=== PATIENT | male | born 1975 | race Caucasian/White ===

== ENCOUNTER 2017-08-18 00:45 | Emergency (ER) | payer OTHER, MEDICAID, SELFPAY ==
[2017-08-18 00:55] VITALS: BP 158/104; PULSE 95; RESP 20; TEMP 36.7; O2SAT 100
--- NOTE | 2017-08-18 01:00 | ED_ITS ---
HPI - Back Pain/Injury General Chief Complaint: Back Pain/Injury Stated Complaint: KIDNEY PAIN ON RIGHT SIDE Time Seen by Provider: 08/18/17 00:54 Source: patient and RN notes reviewed Mode of arrival: ambulatory Limitations: no limitations History of Present Illness HPI Narrative: Patient is a 41-year-old male who presents with right-sided hip and back pain. His girlfriend was recently diagnosed with a UTI he thinks he may have a kidney infection. His pain has been ongoing for about 6 months his pain that radiated down his leg. He denies any injury. He has no pain in his groin no painful frequent urination no blood in his urination. He has no penile discharge. The pain comes and goes. He has not had fever chills nausea or vomiting. MD Complaint: back pain Onset (ago): month(s) (6) Duration: intermittent Radiation: right leg Related Data Allergies Allergy/AdvReac Type Severity Reaction Status Date / Time No Known Drug Allergies Allergy Verified 08/18/17 00:55 Review of Systems Review of Systems All systems reviewed & are unremarkable except as noted in HPI and below Constitutional Denies chills, Denies fever(s), Denies lethargy and Denies weakness Cardiovascular Denies chest pain, Denies irregular heart rhythm, Denies lightheadedness, Denies palpitations, Denies dyspnea, Denies dyspnea on exertion and Denies orthopnea Respiratory Denies cough, Denies dyspnea, Denies dyspnea on exertion and Denies wheezing Gastrointestinal Gastrointestinal: Denies abdominal pain, Denies change in bowel habits, Denies diarrhea, Denies nausea and Denies vomiting Genitourinary Reports system reviewed and no additional complaints, except as docu, Denies hematuria and Reports flank pain Musculoskeletal Reports system reviewed and no additional complaints, except as docu, Reports as per HPI, Reports back pain (Right hip), Denies muscle weakness, Denies numbness, Reports radiating pain into limb (Right leg) and Denies tingling Integumentary/Breasts Denies pruritus, Denies erythema, Denies rash and Denies wounds Neurologic Denies numbness, Denies tingling and Denies weakness Endocrine Denies palpitations Allergic/Immunologic Denies wheezing Exam Const General: cooperative and healthy appearing Neck Neck: normal visual inspection, full ROM and no meningeal signs Resp Effort & Inspection: normal respiratory effort and able to speak in complete sentences Cardio Pulses: normal peripheral pulses GI Palpation: soft, No guarding and No tender Percussion: normal to percussion Auscultation: normal bowel sounds General: No CVA tenderness Back/Spine/Pelvis Thoracic/Lumbar Spine: thoracic and lumbar spine normal to inspection and straight leg raise negative bilaterally (Able to lift both legs up more than 45 ? without pain) Sacroiliac Joints: nontender Skin General: no rashes or lesions noted, No jaundice and No petechiae MDM - Back Pain/Injury Lab Data Attestation: I reviewed the patient's lab results. Urine POC is negative for leukocytes nitrites protein and blood Course Last Vital Signs Temp 98.0 F 08/18/17 00:55 Pulse 95 H 08/18/17 00:55 Resp 20 08/18/17 00:55 BP 158/104 H 08/18/17 00:55 Pulse Ox 100 08/18/17 00:55 Discharge Plan Departure Patient Disposition: Home, Self-Care Clinical Impression: Sciatic leg pain Discharge Date/Time: 08/18/17 01:31 Interventions: ED Discharge Assessment Last Done: 08/18/17 01:26 Instructions: DI for Back Pain With Sciatica Activity Restrictions/Additional Instructions: *You have been diagnosed with sciatic pain *What to do: Recommend physical therapy, chiropractor, gentle exercising, -urine tested today did not show signs of bladder infection *Take medications as directed *Follow up with your primary care provider in 2-3 days *Return to ER if you should have increased weakness of the leg, numbness, tingling, or any new, worsening or concerning symptoms Referrals: [facility] [Outside] [facility] [Outside] [facility] [Outside] [facility] [Outside]
== END 2017-08-18 01:31 | disposition home or self-care (01) ==
PROVIDERS: Emergency Provider Emergency Medicine
DX: M54.30 Sciatica, unspecified side (principal)
CPT/HCPCS: 81003; 99282

== ENCOUNTER 2018-06-06 16:50 | Emergency (ER) | payer SELFPAY ==
[2018-06-06 16:54] VITALS: BP 154/96; PULSE 83; RESP 18; TEMP 36.6; O2SAT 100; BMI 29.9
[2018-06-06 17:22] LABS: Bacteria Urine Occasional (0-1); Squamous Epithelial Cell Urine 0-1 /HPF; WBC Urine 30-100/HPF (0-5/HPF)
[2018-06-06 17:23] LABS: Culture Indicated Urine Specimen Cultured; RBC Urine 10-30/HPF (0-5/HPF)
--- NOTE | 2018-06-07 02:08 | ED_ITS ---
HPI - Male Genitourinary General Chief complaint: Urogenital-Male Stated complaint: THINKS UTI Time Seen by Provider: 06/06/18 18:16 Source: patient Mode of arrival: ambulatory Limitations: no limitations History of Present Illness HPI Narrative: 42-year-old male smoker without other medical problems presents with a chief complaint dysuria, frequency and urgency in the absence of fever, nausea or vomiting. He does have some mild back discomfort and suprapubic tenderness. He denies any penile discharge and has had no vomiting or diarrhea. Onset (ago): week(s) Duration: constant Severity: mild Quality: aching Relieving factors: none Exacerbating factors: urination Reports denies other symptoms Related Data Previous Rx's Medication Instructions Recorded cephalexin [Keflex] 500 mg PO QID 10 Days #40 cap 06/06/18 Allergies Allergy/AdvReac Type Severity Reaction Status Date / Time No Known Drug Allergies Allergy Verified 06/06/18 16:53 Review of Systems Constitutional Denies chills, Denies fever(s), Denies lethargy and Denies weakness Eyes Denies change in vision, Denies eye discharge, Denies irritation and Denies loss of vision ENT Ears, Nose, Mouth, and Throat: Denies change in voice, Denies neck pain and Denies sore throat Cardiovascular Denies chest pain, Denies irregular heart rhythm, Denies lightheadedness, Denies palpitations, Denies dyspnea, Denies dyspnea on exertion and Denies orthopnea Respiratory Denies cough, Denies dyspnea, Denies dyspnea on exertion and Denies wheezing Gastrointestinal Gastrointestinal: Denies abdominal pain, Denies change in bowel habits, Denies diarrhea, Denies nausea and Denies vomiting Genitourinary Denies hematuria, Reports dysuria, Denies flank pain, Reports urinary frequency, Denies urinary incontinence and Reports urinary urgency Musculoskeletal Denies neck pain Integumentary/Breasts Denies pruritus, Denies erythema, Denies rash and Denies wounds Neurologic Denies confusion, Denies loss of vision and Denies weakness Psychiatric Denies anxiety, Denies confusion, Denies depression, Denies homicidal ideation and Denies suicidal ideation Endocrine Denies palpitations Hematologic/Lymphatic Denies easy bruising Allergic/Immunologic Denies wheezing [facility] Social History Smoking Status: Current every day smoker Social History Smoking Status: Current every day smoker Exam Narrative Exam Narrative: GEN: AOx3 and in mild distress EYES: Pupils are equal, round, and reactive to light and accommodation. Extraoccular muscles are intact bilaterally. There is no subconjunctival hemorrhage or exudate. CHEST: Lungs are clear to auscultation bilaterally and free of wheezes, rales, or rhonchi. Heart rate is regular rhythm, there are no murmurs, clicks, rubs, or gallops. There is no chest wall tenderness. ABD: Abdomen is soft and nontender. There is no guarding or rebound. Bowel sounds are normal in all 4 quadrants. There is no mass or organomegaly. EXT: Full painless ROM of all extremities with no loss of sensation or strength. SKIN: Warm, pink, and dry. No erythema or rash Initial Vital Signs Initial Vital Signs: Vital Signs Temperature 97.8 F 06/06/18 16:54 Pulse Rate 83 06/06/18 16:54 Respiratory Rate 18 06/06/18 16:54 Blood Pressure 154/96 H 06/06/18 16:54 Pulse Oximetry 100 06/06/18 16:54 MDM - Male Genitourinary Lab Data Lab Results 06/06/18 Range/Units 17:05 Urine RBC 10-30/hpf H (0-5/HPF) Urine WBC 30-100/hpf H (0-5/HPF) Ur Squamous Epith Cells 0-1 /hpf Urine Bacteria Occasional (0-1) (None) Ur Culture Indicated? Specimen cultured Urine Dip Bedside Urine Glucose Negative Bedside Urine Bilirubin - Negative Bedside Urine Ketone - Negative Urine Specific Roy 1.030 Bedside Urine Occult Blood +++ Bedside Urine pH 5.5 Bedside Urine Protein ++ 100 Bedside Urine Urobilinogen - Negative Bedside Urine Nitrite - Negative Bedside Urine Leukocytes - Negative Esterase Discharge Plan Departure Patient Disposition: Home Clinical Impression: Urinary tract infection Qualifiers: Urinary tract infection type: acute pyelonephritis Qualified Code(s): N10 - Acute pyelonephritis Discharge Date/Time: 06/06/18 19:01 Interventions: ED Discharge Assessment Last Done: 06/06/18 19:00 Instructions: DI for Kidney Infection Activity Restrictions/Additional Instructions: *You have been diagnosed with [UTI] *What to do: *Take medications as directed. Prescriptions transmitted to [facility] in [place] at your request *Follow up with your primary care provider in 2-3 days, call for an appointment. Let them know you were seen in the Emergency Department and that we ask that you be seen in follow up *Return to ER if you should have any new, worsening or concerning symptom Prescriptions: New cephalexin [Keflex] 500 mg capsule 500 mg PO QID 10 Days Qty: 40 RF: 0
== END 2018-06-06 19:01 | disposition home or self-care (01) ==
PROVIDERS: Emergency Medicine; Emergency Provider Emergency Medicine
DX: N10 Acute pyelonephritis (principal)
CPT/HCPCS: 81003; 81015; 87077; 87086; 87186; 99282; 99283

== ENCOUNTER 2019-04-23 13:59 | Emergency (ER) | payer SELFPAY ==
[2019-04-23 14:16] VITALS: BP 167/94; PULSE 108; RESP 16; TEMP 36.8; O2SAT 97; BMI 29.9
--- NOTE | 2019-04-23 18:39 | ED.RECABL ---
HPI - Recheck/Abnormal Lab/Rx General Chief Complaint: Recheck/Abnormal Lab/Rx Stated Complaint: STD TO CHECK AND SEE PARTNER HAS Source: patient Mode of arrival: Ambulatory Related Data Allergies Allergy/AdvReac Type Severity Reaction Status Date / Time No Known Drug Allergies Allergy Verified 04/23/19 14:16 Patient History Social History Smoking Status: Current every day smoker Smoking Status: Current every day smoker alcohol intake frequency: holidays/special occasions only Substance Use Type: does not use Exam Initial Vital Signs Initial Vital Signs: Vital Signs Temperature 98.3 F 04/23/19 14:16 Pulse Rate 108 H 04/23/19 14:16 Respiratory Rate 16 04/23/19 14:16 Blood Pressure 167/94 H 04/23/19 14:16 Pulse Oximetry 97 04/23/19 14:16 Course Vital Signs Vital signs: Vital Signs - 8 hr 04/23/19 14:16 Temperature 98.3 F Pulse Rate 108 H Respiratory Rate 16 Blood Pressure 167/94 H Pulse Oximetry 97 Discharge Plan Departure Patient Disposition: Left Without Being Seen Clinical Impression: Patient left after triage Discharge Date/Time: 04/23/19 15:54
== END 2019-04-23 15:54 | disposition left against medical advice (07) ==
PROVIDERS: Emergency Provider Emergency Medicine
CPT/HCPCS: 99281

== ENCOUNTER 2020-09-14 21:10 | Emergency (ER) | payer SELFPAY ==
[2020-09-14 21:12] VITALS: BP 140/88; PULSE 118; RESP 24; TEMP 37.1; O2SAT 96; BMI 29.9
--- NOTE | 2020-09-14 21:51 | DI.RAD.S_ITS ---
PROCEDURE: XR CHEST 1V INDICATIONS: Lower leg swelling and shortness of breath TECHNIQUE: One view of the chest was acquired. COMPARISON: None. FINDINGS: Surgical changes and devices: None. Lungs and pleura: Lungs are clear. No pleural effusions or pneumothorax. Mediastinum: Mediastinal contours appear normal. Heart size is normal. Bones and chest wall: No suspicious bony lesions. Overlying soft tissues appear unremarkable. IMPRESSION: Portable chest within normal limits. Note: No significant discrepancy from the preliminary report. Dictated by: Geoff Lemon M.D. on 09/14/2020 at 22:04 Approved by: Geoff Lemon M.D. on 09/14/2020 at 22:04
--- NOTE | 2020-09-14 22:11 | ED.EXTPRO ---
HPI - Extremity Problem General Chief complaint: Extremity Problem,Nontraumatic Stated complaint: Lower leg swelling Time Seen by Provider: 09/14/20 21:41 Source: patient Mode of arrival: Ambulatory Limitations: no limitations History of Present Illness HPI Narrative: Patient is a 44-year-old male who is here for evaluation of lower extremity swelling and discoloration and redness. He states the symptoms have been going on for the past month but seem to be worsening. He is not have any chest pain or shortness of breath. Has not been evaluated for the symptoms. He states that he has had no new exposures. He does have quite a bit of callus on his feet and he was concerned about potential infection and also the swelling. Is afebrile. Does not have a primary doctor so came to the emergency department for evaluation. Related Data Previous Rx's Medication Instructions Recorded furosemide [Lasix] 20 mg PO DAILY #30 tab 09/14/20 Allergies Allergy/AdvReac Type Severity Reaction Status Date / Time No Known Drug Allergies Allergy Verified 04/23/19 14:16 Review of Systems Constitutional Constitutional: Denies fever(s) Cardiovascular Cardiovascular: Denies chest pain and Denies dyspnea Respiratory Respiratory: Denies dyspnea Gastrointestinal Gastrointestinal: Reports system reviewed and no additional complaints, except as documented Musculoskeletal Comments: Lower extremity swelling Integumentary/Breasts Comments: Redness to both of his feet Neurologic Neurologic: Reports system reviewed and no additional complaints, except as documented Psychiatric Psychiatric: Reports system reviewed and no additional complaints, except as documented Hematologic/Lymphatic On Anticoagulants: No Allergic/Immunologic Allergic/Immunologic: Reports system reviewed and no additional complaints, except as documented Patient History Medical History Concern about STD in male without diagnosis Social History Smoking Status: Current every day smoker Smoking Status: Current every day smoker alcohol intake frequency: 0-2 drinks per day Substance Use Type: does not use Exam Initial Vital Signs Initial Vital Signs: Vital Signs Temperature 98.8 F 09/14/20 21:12 Pulse Rate 118 H 09/14/20 21:12 Respiratory Rate 24 09/14/20 21:12 Blood Pressure 140/88 09/14/20 21:12 Pulse Oximetry 96 09/14/20 21:12 Const General: cooperative and comfortable Limitations: mental status not altered [facility] Head: normal to inspection and normocephalic Resp Effort & Inspection: normal respiratory effort Auscultation: clear to auscultation bilaterally Cardio Rate: tachycardic Rhythm: regular rhythm GI Inspection: non-distended Skin Other: Patient does have redness on bilateral lower extremities from about his mid calf to his feet. Does seem to get worse from his mid foot forward. He does have quite a bit a callus on bilateral feet especially on the bottoms. There are no blisters. No vesicles. Neuro General: patient alert and patient awake Extrem General: edema Psych Appearance: grossly normal and well kempt Course Orders Ordered: ED Orders 09/14/20 21:51 XR chest 1V Stat 09/14/20 21:52 EKG-12 Lead Stat 09/14/20 22:30 Complete Blood Count AUTO DIFF Stat Comprehensive Metabolic Panel Stat NT-proBNP (BNP-Adult 18+) Stat Troponin & CK Cardiac Panel Stat Vital Signs Vital signs: Vital Signs - 8 hr 09/14/20 21:12 09/14/20 22:12 09/14/20 22:30 Temperature 98.8 F Pulse Rate 118 H 95 H 83 Respiratory Rate 24 17 22 Blood Pressure 140/88 Pulse Oximetry 96 96 09/14/20 23:00 09/14/20 23:09 09/14/20 23:30 Temperature Pulse Rate 79 86 79 Respiratory Rate 21 21 21 Blood Pressure 144/90 H 149/91 H Pulse Oximetry 99 98 98 MDM - Extremity (Nontraumatic) Lab Data Result diagrams: 09/14/20 22:30 09/14/20 22:30 Labs: Lab Results 09/14/20 09/14/20 Range/Units 22:30 22:30 WBC 11.9 H (4.5-11.0) X10^3/uL RBC 5.50 (4.5-5.9) X10^6/uL Hgb 15.1 (13.5-17.5) g/dL Hct 45.5 (41-53) % MCV 82.7 (80-100) fL MCH 27.5 (26-34) PG MCHC 33.3 (30-36) % RDW 14.6 (11.6-14.8) % Plt Count 224 (150-400) X10^3/uL Neut % (Auto) 72.0 (50-75) % Lymph % (Auto) 18.2 L (25-40) % [place] % (Auto) 7.2 (3-14) % Eos % (Auto) 1.5 L (2-4) % Baso % (Auto) 1.1 (0-2) % Neut # (Auto) 8600 H (7397-2339) /uL Lymph # (Auto) 2200 (0276-8311) /uL [place] # (Auto) 900 (0-900) /uL Eos # (Auto) 200 (0-450) /uL Baso # (Auto) 100 (0-100) /uL Sodium 140 (137-145) mmol/L Potassium 4.5 (3.4-5.1) mmol/L Chloride 105 (98-107) mmol/L Carbon Dioxide 28 (22-32) mmol/L BUN 22 H (9-20) mg/dL Creatinine 0.90 (0.66-1.25) mg/dL Estimated GFR > 60.0 (>60) mL/min BUN/Creatinine Ratio 24.4 H (6-22) Glucose 99 (70-100) mg/dL Calcium 9.1 (8.4-10.2) mg/dL Total Bilirubin 0.3 (0.2-1.3) mg/dL AST 25 (17-59) IU/L ALT 38 (<50) IU/L Alkaline Phosphatase 84 (38-126) U/L Total Creatine Kinase 77 (55-170) U/L CK-MB (CK-2) TNP CK-MB (CK-2) Rel Index TNP Troponin I < 0.012 (0.01-0.034) ng/mL NT-Pro-B Natriuret Pep 53 (<125) pg/mL Total Protein 7.3 (6.3-8.2) g/dL Albumin 3.9 (3.5-5.0) g/dL Globulin 3.4 (1.7-4.1) g/dL Albumin/Globulin Ratio 1.1 (1.0-2.8) Imaging Data Chest x-ray: Radiologist's Impression: [address] [id number] ReportSigned Patient: Breann Wilkinson#: [id number]: 1975Acct:[id number]/Sex: 44 / MDate of Service: 09/14/20Loc: EDAccession Number: [id number] Procedure: XR chest 1V Ordering Provider: David Ramirez D.O. PROCEDURE: XR CHEST 1V INDICATIONS: Lower leg swelling and shortness of breath TECHNIQUE: One view of the chest was acquired. COMPARISON: None. FINDINGS: Surgical changes and devices: None. Lungs and pleura: Lungs are clear. No pleural effusions or pneumothorax. Mediastinum: Mediastinal contours appear normal. Heart size is normal. Bones and chest wall: No suspicious bony lesions. Overlying soft tissues appear unremarkable. IMPRESSION: Portable chest within normal limits. Note: No significant discrepancy from the preliminary report. Dictated by: Geoff Lemon M.D. on 09/14/2020 at 22:04 Approved by: Geoff Lemon M.D. on 09/14/2020 at 22:04 ECG Data Attestation EKG: I personally reviewed and interpreted this ECG as follows: Prior ECG tracings: not available for review Interpretation: Sinus rhythm Ventricular rate 90 Normal axis Normal QRS Normal QTC No ST T wave changes MDM Narrative Medical decision making narrative: He does have bilateral lower extremity swelling but is not specifically tender in 1 particular area and it does seem to be equal bilateral. I do have low suspicion for DVT given his presentation. His physical exam and labs are not consistent with heart failure. His renal functions unremarkable. He does have redness on his feet specifically from his mid foot forward. Initially his feet give me the impression of someone who is spent an extensive amount of time in a wet environment however the patient states that he does not sweat extensively and has not had any new shoes or exposures or trauma. Unsure the exact etiology of his symptoms but it does not appear to be an infectious process. We will hold on any antibiotics. Will start the patient on Lasix as the redness does appear to be more of a venous stasis changes. He was given information to help establish a primary doctor's I feel that he is going to need further workup of this. He is given return precautions. He expressed understanding agreement. Discharge Plan Departure Patient Disposition: Home Clinical Impression: Lower extremity edema Instructions: DI for Peripheral Edema -- Bilateral Activity Restrictions/Additional Instructions: Recommend that you start taking the diuretics as directed. I also recommend you contact the health natural resources faculty member at the hospital at [phone]. This individual can help you establish a primary provider. Return to the emergency department for any new or worsening symptoms Prescriptions: New furosemide [Lasix] 20 mg tablet 20 mg PO DAILY Qty: 30 RF: 0
[2020-09-14 22:12] VITALS: PULSE 95; RESP 17
[2020-09-14 22:30] VITALS: PULSE 83; RESP 22; O2SAT 96
[2020-09-14 22:43] LABS: Add Manual Diff / Slide Review NO; Basophils Absolute Auto 100 /uL (0-100); Basophils Percent Auto 1.1 % (0-2); Eosinophils Absolute Auto 200 /uL (0-450); Eosinophils Percent Auto 1.5 % (2-4); Hematocrit 45.5 % (41-53); Hemoglobin 15.1 g/dL (13.5-17.5); Lymphocytes Absolute Auto 2200 /uL (1100-4500); Lymphocytes Percent Auto 18.2 % (25-40); Mean Corpuscular HGB Conc 33.3 % (30-36); Mean Corpuscular Hemoglobin 27.5 PG (26-34); Mean Corpuscular Volume 82.7 fL (80-100); Monocytes Absolute Auto 900 /uL (0-900); Monocytes Percent Auto 7.2 % (3-14); Neutrophils Absolute Auto 8600 /uL (1500-7000); Platelet Count 224 X10^3/uL (150-400); Red Cell Distribution Width 14.6 % (11.6-14.8); White Blood Cell Count 11.9 X10^3/uL (4.5-11.0)
[2020-09-14 22:56] LABS: Alanine Aminotransferase 38 IU/L (<50); Albumin 3.9 g/dL (3.5-5.0); Albumin Globulin Ratio 1.1 (1.0-2.8); Alkaline Phosphatase 84 U/L (38-126); Aspartate Aminotransferase 25 IU/L (17-59); BUN Creatinine Ratio 24.4 (6-22); Bilirubin Total 0.3 mg/dL (0.2-1.3); Blood Urea Nitrogen 22 mg/dL (9-20); Calcium 9.1 mg/dL (8.4-10.2); Carbon Dioxide 28 mmol/L (22-32); Chloride 105 mmol/L (98-107); Creatine Kinase 77 U/L (55-170); Estimated Glomerular Filt Rate > 60.0 mL/min (>60); Globulin 3.4 g/dL (1.7-4.1); Glucose 99 mg/dL (70-100); HEMOLYSIS < 15 (0-50); Potassium 4.5 mmol/L (3.4-5.1); Sodium 140 mmol/L (137-145); Total Protein 7.3 g/dL (6.3-8.2)
[2020-09-14 23:00] VITALS: PULSE 79; RESP 21; O2SAT 99
[2020-09-14 23:07] LABS: NT-proBNP (BNP-Adult 18+) 53 pg/mL (<125); Troponin I < 0.012 ng/mL (0.01-0.034)
[2020-09-14 23:09] VITALS: BP 144/90; PULSE 86; RESP 21; O2SAT 98
[2020-09-14 23:30] VITALS: BP 149/91; PULSE 79; RESP 21; O2SAT 98
== END 2020-09-14 23:59 | disposition home or self-care (01) ==
PROVIDERS: Emergency Provider Emergency Medicine
DX: R60.0 Localized edema (principal); R06.02 Shortness of breath
CPT/HCPCS: 36415; 71045; 80053; 82550; 83880; 84484; 85025; 93005; 99283; 99284

== ENCOUNTER 2021-03-09 21:38 | Emergency (ER) | payer OTHER, MEDICAID, SELFPAY ==
[2021-03-09 21:51] VITALS: BP 151/101; PULSE 123; RESP 20; TEMP 36.7; O2SAT 97; BMI 29.9
--- NOTE | 2021-03-09 22:01 | DI.RAD.S_ITS ---
PROCEDURE: XR KNEE RT 3V INDICATIONS: old patella fx; worsening pain TECHNIQUE: 3 views of the knee were acquired. COMPARISON: None. FINDINGS: Bones: No acute fractures or dislocations. Small loose bodies at the anterior aspect of the right knee joint. Irregularity at the inferior patella. Patellar osteophytes. Lateral compartment osteophytes. No suspicious bony lesions. Soft tissues: Small joint effusion. No suspicious soft tissue calcifications. IMPRESSION: No acute fracture identified. Small joint effusion. Irregularity at the inferior patella and small intra-articular loose bodies presumably due to fracture. Moderate DJD. Dictated by: Francis Helms M.D. on 03/09/2021 at 23:16 Approved by: Francis Helms M.D. on 03/09/2021 at 23:18
--- NOTE | 2021-03-09 22:01 | DI.RAD.S_ITS ---
PROCEDURE: XR HIP W PEL IF DONE RT 2V INDICATIONS: old patella fx; worsening pain TECHNIQUE: AP pelvis with lateral view(s) of the right hip(s). COMPARISON: None. FINDINGS: Bones: No fractures identified. No dislocations. There is severe [id number] narrowing of the right hip with subchondral lucency. Mild left hip DJD. Pelvic ring appears intact. No suspicious bony lesions. Soft tissues: The visualized bowel gas pattern is normal. No suspicious soft tissue calcifications. IMPRESSION: Severe right hip DJD. Right femoral head lucency could be due to degenerative subchondral cystic change or a vascular necrosis. Dictated by: Francis Helms M.D. on 03/09/2021 at 23:14 Approved by: Francis Helms M.D. on 03/09/2021 at 23:16
[2021-03-09 22:04] VITALS: PULSE 102
--- NOTE | 2021-03-09 22:57 | ED.EXTPRO ---
HPI - Extremity Problem General Chief complaint: Extremity Problem,Nontraumatic Stated complaint: Right knee and lower back pain 1 1/2 weeks Time Seen by Provider: 03/09/21 21:44 Source: patient Mode of arrival: Ambulatory Limitations: no limitations History of Present Illness HPI Narrative: 45-year-old male smoker with history of prior orthopedic injuries presents for evaluation of a right knee is clicking and patient suggests is dislocated. He denies any specific injury, falls or other trauma and states that he has been having trouble with this knee for quite some time. He states that he feels as if it looks like it may be dislocated. He denies any fall or trauma. He denies any numbness, tingling or weakness. He states that he has been also having some pain in his right hip, again also in the absence of any injury. She denies any numbness, tingling or weakness. He denies any fever or chills. He has not taken any medications or had prior evaluations Related Data Previous Rx's Medication Instructions Recorded furosemide 20 mg tablet (Lasix) 20 mg PO DAILY #30 tab 09/14/20 Allergies Allergy/AdvReac Type Severity Reaction Status Date / Time No Known Drug Allergies Allergy Verified 04/23/19 14:16 Review of Systems Review of Systems Narrative: GENERAL: Denies chills, fatigue, malaise, fever, sweats. HEENT: Denies sinus pain, ear pain, sore throat, difficulty swallowing, dizziness. RESPIRATORY: Denies dyspnea, cough, wheezing, hemoptysis, sputum. CARDIOVASCULAR: Denies chest pain, palpitations, orthopnea, edema, GASTROINTESTINAL: Denies nausea, vomiting, abdominal pain, diarrhea, constipation, melena. : Denies dysuria, frequency, incontinence, hematuria, urinary retention. MUSCULOSKELETAL: See HPI SKIN: Denies rash, skin lesions, or other NEUROLOGIC: Denies weakness, headache, numbness, change in speech, confusion, seizures, incoordination. PSYCHIATRIC: No concerning psychosocial issues. 12 point review of systems is negative except for those stated above Patient History Medical History Concern about STD in male without diagnosis Social History Smoking Status: Current some day smoker Smoking Status: Current some day smoker tobacco type: cigars alcohol intake frequency: a few times a week Substance Use Type: does not use Exam Narrative Exam Narrative: GEN: AOx3 and in mild distress EYES: Pupils are equal, round, and reactive to light and accommodation. Extraoccular muscles are intact bilaterally. There is no subconjunctival hemorrhage or exudate. CHEST: Lungs are clear to auscultation bilaterally and free of wheezes, rales, or rhonchi. Heart rate is regular rhythm, there are no murmurs, clicks, rubs, or gallops. There is no chest wall tenderness. ABD: Abdomen is soft and nontender. There is no guarding or rebound. Bowel sounds are normal in all 4 quadrants. There is no mass or organomegaly. EXT: Full painless range of motion of the right knee, no obvious deformity, no ligamentous instability. No joint line tenderness. Patient has no pain on palpation of right hip, patient able to walk with out and antalgic gait. He has no systemic findings either SKIN: Warm, pink, and dry. No erythema or rash Initial Vital Signs Initial Vital Signs: Vital Signs Temperature 98.1 F 03/09/21 21:51 Pulse Rate 123 H 03/09/21 21:51 Respiratory Rate 20 03/09/21 21:51 Blood Pressure 151/101 H 03/09/21 21:51 Pulse Oximetry 97 03/09/21 21:51 Course Orders Ordered: ED Orders 03/09/21 22:01 XR hip w pel if done RT 2V Stat XR knee RT 3V Stat Vital Signs Vital signs: Vital Signs - 8 hr 03/09/21 21:51 03/09/21 22:04 Temperature 98.1 F Pulse Rate 123 H 102 H Respiratory Rate 20 Blood Pressure 151/101 H Pulse Oximetry 97 MDM - Extremity (Nontraumatic) Imaging Data Right Knee Xray: Radiologist's Impression: [address] [address] XRay Report Signed Patient: Javier Wilkinson MR#: [id number] : 1975 Acct:[id number] Age/Sex: 45 / M Date of Service: 03/09/21 Loc: ED Accession Number: [id number] ?? Procedure: XR knee RT 3V Ordering Provider: Haverhill,Matthew D.O. PROCEDURE:? XR KNEE RT 3V ? INDICATIONS:? old patella fx; worsening pain ? TECHNIQUE:? 3 views of the knee were acquired.? ? COMPARISON:? None. ? FINDINGS:? ? Bones:? No acute fractures or dislocations.? Small loose bodies at the anterior aspect of the right knee joint.? Irregularity at the inferior patella.? Patellar osteophytes.? Lateral compartment osteophytes.? No suspicious bony lesions.? ? Soft tissues:? Small joint effusion.? No suspicious soft tissue calcifications.? ? ? IMPRESSION:? No acute fracture identified.? Small joint effusion. ? Irregularity at the inferior patella and small intra-articular loose bodies presumably due to fracture. ? Moderate DJD.? ? Dictated by: Francis Helms M.D. on 03/09/2021 at 23:16 ? ? Approved by: Francis Helms M.D. on 03/09/2021 at 23:18 ? Extremity x-ray #1: Radiologist's Impression: Javier Wilkinson??45??M??1975 ? Allergy/Adv: No Known Drug Allergies Close Knee X-Ray (Signed) Call,Francis - 03/09/21 Hip X-Ray (Signed) Call,Francis - 03/09/21 Chest X-Ray (Signed) Geoff Lemon - 09/14/20 [address]?[place] [address] XRay Report Signed Patient: Javier Wilkinson MR#: [id number] : 1975 Acct:[id number] Age/Sex: 45 / M Date of Service: 03/09/21 Loc: ED Accession Number: [id number] ?? Procedure: XR hip w pel if done RT 2V Ordering Provider: Matthew Vasques D.O. PROCEDURE:? XR HIP W PEL IF DONE RT 2V ? INDICATIONS:? old patella fx; worsening pain ? TECHNIQUE:? AP pelvis with lateral view(s) of the right hip(s).? ? COMPARISON:? None. ? FINDINGS:? ? Bones:? No fractures identified.? No dislocations.? There is severe [id number] narrowing of the right hip with subchondral lucency.? Mild left hip DJD.? Pelvic ring appears intact.? No suspicious bony lesions.? ? Soft tissues:? The visualized bowel gas pattern is normal.? No suspicious soft tissue calcifications.? ? ? IMPRESSION:? Severe right hip DJD.? ? Right femoral head lucency could be due to degenerative subchondral cystic change or a vascular necrosis. ? ? ? Dictated by: Francis Helms M.D. on 03/09/2021 at 23:14 ? ? Approved by: Francis Helms M.D. on 03/09/2021 at 23:16 ? Discharge Plan Departure Patient Disposition: Home Clinical Impression: Chronic knee pain, Chronic hip pain Instructions: DI for Knee Pain Activity Restrictions/Additional Instructions: *You have been diagnosed with [right knee pain. Your history, physical exam and x-rays are reassuring. There is no evidence to suggest your knee is dislocated. You have extensive arthritis in your knee and hip and will surely benefit from a consultation with an orthopedic surgeon. I have included contact information below *What to do: *Please continue to take your regular medications as directed. [ ] New medication prescriptions sent to your pharmacy: [ ] [ ] New medication written as a paper prescription [x ] No new medications given *Please follow up with your primary care provider in 2-3 days, call for an appointment. Let them know you were seen in the Emergency Department and that we ask that you be seen in follow up. We will electronically transmit a record of today's note if your PCP is in our system *If you do not have a primary care provider please contact the [facility] Resource line at [phone]. They will ask some questions about your medical history and help get you set up with a doctor in the community. *Return to Emergency Department if you should have any new, worsening or concerning symptoms, such as [fever greater than 101 F, shaking chills, worsening pain, persistent vomiting or other bothersome symptoms] Prescriptions: No Action furosemide [Lasix] 20 mg tablet 20 mg PO DAILY Qty: 30 0RF Referrals: Matt Yancey MD [Physician] -
== END 2021-03-09 23:36 | disposition home or self-care (01) ==
PROVIDERS: Emergency Provider Emergency Medicine
DX: M25.561 Pain in right knee (principal); M25.551 Pain in right hip; G89.29 Other chronic pain; F17.290 Nicotine dependence, other tobacco product, uncomplicated
CPT/HCPCS: 73502; 73562; 99283

== ENCOUNTER 2022-08-22 13:27 | Emergency (ER) | payer OTHER, MEDICAID, SELFPAY ==
[2022-08-22 13:49] VITALS: BP 141/89; PULSE 110; RESP 20; TEMP 36.4; O2SAT 97; BMI 32.5
--- NOTE | 2022-08-22 14:17 | ED.SKABFB ---
HPI - Skin/Abscess/Foreign Bdy <LASHANDA Yeh - Last Filed: 08/22/22 14:38> General Chief complaint: Skin/Abscess/Foreign Body Stated complaint: rt leg swelling/wound Time Seen by Provider: 08/22/22 13:53 Source: patient Mode of arrival: Family Vehicle Limitations: no limitations History of Present Illness HPI narrative: This 46-year-old gentleman presents emergency department complaining of wounds on his hands and his right lower leg that has been getting worse over the last week associated with swelling, redness, scabbing. He denies history of substance abuse, alcohol use, states that he lost his house and his living situation has caused him some stress but he is doing okay. She denies fever but states that he is had chills recently, denies any pus coming from any of his wounds. States that he has a blister versus abscess on his left index finger that has not popped yet. States that his tetanus is up-to-date. Related Data Previous Rx's Medication Instructions Recorded furosemide 20 mg tablet (Lasix) 20 mg PO DAILY #30 tabs 09/14/20 cephalexin 500 mg capsule 500 mg PO QID 10 days #40 caps 08/22/22 doxycycline hyclate 100 mg capsule 100 mg PO BID 10 days #20 caps 08/22/22 mupirocin 2 % topical ointment 1 applic topical DAILY #22 grams 08/22/22 Allergies Allergy/AdvReac Type Severity Reaction Status Date / Time No Known Drug Allergies Allergy Verified 04/23/19 14:16 Patient History <LASHANDA Yeh - Last Filed: 08/22/22 14:38> Medical History Concern about STD in male without diagnosis Social History Smoking Status: Current some day smoker Smoking Status: Current some day smoker tobacco type: cigars alcohol intake frequency: a few times a week Substance Use Type: does not use Exam <LASHANDA Yeh - Last Filed: 08/22/22 14:38> Narrative Exam Narrative: Skin: Patient has various wounds on his upper and lower extremities which are in various stages of healing, wounds have surrounding erythema, there is a wound/abscess to the left index finger over the D IP on the medial aspect of the joint, this was drained with a 23 gauge needle, serosanguineous drainage, wound was cultured, patient has full range of motion of all of his extremities, there is no fluctuance, there is no streaking or tunneling, he is afebrile without blisters, any diffuse rash, or crepitus. Initial Vital Signs Initial Vital Signs: Vital Signs Temperature 97.6 F 08/22/22 13:49 Pulse Rate 110 H 08/22/22 13:49 Respiratory Rate 08/22/22 13:49 Blood Pressure 141/89 H 08/22/22 13:49 Pulse Oximetry 97 08/22/22 13:49 Oxygen Delivery Method Room Air 08/22/22 13:49 <Matthew Vasques DO - Last Filed: 08/23/22 08:37> Initial Vital Signs Initial Vital Signs: Vital Signs Temperature 97.6 F 08/22/22 13:49 Pulse Rate 110 H 08/22/22 13:49 Respiratory Rate 08/22/22 13:49 Blood Pressure 141/89 H 08/22/22 13:49 Pulse Oximetry 97 08/22/22 13:49 Oxygen Delivery Method Room Air 08/22/22 13:49 Course <LAHSANDA Yeh - Last Filed: 08/22/22 14:38> Orders Ordered: Discontinued Medications Bacitracin (Bacitracin Oint 0.9 Gm Pckt) 1 applic TOP NOW ONE Stop: 08/22/22 14:09 Last Admin: 08/22/22 14:30 Dose: 1 applic Documented By: NR Cephalexin HCl (Cephalexin 250 Mg Capsule) 500 mg PO NOW ONE Stop: 08/22/22 14:09 Last Admin: 08/22/22 14:29 Dose: 500 mg Documented By: NR Diphtheria/Tetanus/Acell Pertussis (Tet,Diph,Pertuss(Acell),Vac/Pf 0.5 Ml Syringe) 0.5 ml IM .ONCE ONE Stop: 08/22/22 14:28 Last Admin: 08/22/22 14:39 Dose: Not Given Documented By: NR Doxycycline Hyclate (Doxycycline Hyclate 100 Mg Tablet) 100 mg PO NOW ONE Stop: 08/22/22 14:09 Last Admin: 08/22/22 14:29 Dose: 100 mg Documented By: NR Vital Signs Vital signs: Vital Signs - 8 hr 08/22/22 13:49 Temperature 97.6 F Pulse Rate 110 H Respiratory Rate 20 Blood Pressure 141/89 H Pulse Oximetry 97 Oxygen Delivery Method Room Air <Matthew Vasqeus DO - Last Filed: 08/23/22 08:37> Orders Ordered: Discontinued Medications Bacitracin (Bacitracin Oint 0.9 Gm Pckt) 1 applic TOP NOW ONE Stop: 08/22/22 14:09 Last Admin: 08/22/22 14:30 Dose: 1 applic Documented By: NR Cephalexin HCl (Cephalexin 250 Mg Capsule) 500 mg PO NOW ONE Stop: 08/22/22 14:09 Last Admin: 08/22/22 14:29 Dose: 500 mg Documented By: NR Diphtheria/Tetanus/Acell Pertussis (Tet,Diph,Pertuss(Acell),Vac/Pf 0.5 Ml Syringe) 0.5 ml IM .ONCE ONE Stop: 08/22/22 14:28 Last Admin: 08/22/22 14:39 Dose: Not Given Documented By: NR Doxycycline Hyclate (Doxycycline Hyclate 100 Mg Tablet) 100 mg PO NOW ONE Stop: 08/22/22 14:09 Last Admin: 08/22/22 14:29 Dose: 100 mg Documented By: NR Vital Signs Vital signs: Vital Signs - 8 hr 08/22/22 13:49 Temperature 97.6 F Pulse Rate 110 H Respiratory Rate 20 Blood Pressure 141/89 H Pulse Oximetry 97 Oxygen Delivery Method Room Air MDM - Skin/Abscess/Foreign Bdy <LASHANDA Yeh - Last Filed: 08/22/22 14:38> [facility] Narrative Medical decision making narrative: Chief Complaint: Wounds Independent historian: Patient Multiple etiologies for patient's symptoms considered including, but not limited to: Abscess, cellulitis, venous stasis ulcer, foreign body, necrotizing skin infection, DVT with thrombophlebitis I have independently reviewed the patient's vital signs and nursing notes as well as prior records if available. Course of care: On exam, patient is afebrile, without fever chills, denies need for pain medication, has some wounds to the right lower lateral leg which are scabbed over, surrounding erythema without fluctuance or drainage. Skin is dry, no palpable fluid collection or circumferential edema, no tenderness along deep vein system, no calf tenderness to palpation, left index finger has a blister versus abscess over the DIP joint on the medial aspect. This was punctured with a 23 gauge needle, needle aspiration had serosanguineous fluid, this was obtained for culture and wound culture with Gram stain is pending. Patient refused his tetanus vaccination. He was treated with cephalexin and doxycycline, prescribed mupirocin ointment, he has wound care completed by myself and the RN and all of his wounds covered with bacitracin, [place]/abscess was drained and covered with bacitracin and a Band-Aid. Wound cultures pending, only other culture patient has is from his urine with E coli growth and shows resistance to ampicillin and Bactrim Social considerations that may affect disposition: none Questions are addressed and there is agreement with the plan and for follow-up. I consulted with the ED attending physician Dr. Vasques as needed for higher level of care considerations and they were available for discussion and recommendations regarding plan of care and diagnostic testing. Patient is appropriate for outpatient management. Discharge Plan Departure Patient Disposition: Home Clinical Impression: Wound abscess Cellulitis Qualifiers: Site of cellulitis: extremity Site of cellulitis of extremity: lower extremity Laterality: right Qualified Code(s): L03.115 - Cellulitis of right lower limb Instructions: Cellulitis, DI for Wound Infection, Skin Wound Activity Restrictions/Additional Instructions: *You have been diagnosed with wounds leg with infection. I have given you 2 different antibiotics which will work together to help treat this. Please use the topical antibiotic ointment, shower daily, elevate your legs, and keep your wounds covered with a bandage as tolerated. I hope you start feeling better soon, please finish these antibiotics, come back if you get worse, develop a fever or chills or if there is pus underneath the skin that needs to be drained. *What to do: *Please continue to take your regular medications as directed. [ x] New medication prescriptions sent to your pharmacy: [ [facility]] [ ] New medication written as a paper prescription [ ] No new medications given *Please call and schedule follow up with your primary care provider in 2-3 days, at least for an update. Let them know you were seen in the Emergency Department for the above problem. We will electronically transmit a record of today's note if your PCP or specialist is in our system. *If you do not have a primary care provider please contact [phone] to establish care with one of the [facility] primary care providers. *Return to the Emergency Department for worsening symptoms, inability to keep liquids down, fever greater than 101F, chills, or other concerning symptom. Prescriptions: New mupirocin 2 % ointment 1 applic topical DAILY Qty: 22 0RF cephalexin 500 mg capsule 500 mg PO QID 10 Days Qty: 40 0RF doxycycline hyclate 100 mg capsule 100 mg PO BID 10 Days Qty: 20 0RF No Action furosemide [Lasix] 20 mg tablet 20 mg PO DAILY Qty: 30 0RF Stand Alone Forms: Patient Portal/API <Matthew Vasques DO - Last Filed: 08/23/22 08:37> Cosign ED Attending Cosignature Attestation: I was immediately available in the department for consultation. Documentation has been reviewed. I agree with assessment and plan.
[2022-08-22] MEDS: cephALEXin 250 MG CAPSULE 500 MG PO (14:29)
[2022-08-22] MEDS: DOXYCYCLINE HYCLATE 100 MG TABLET PO (14:29)
[2022-08-22] MEDS: BACITRACIN OINT 0.9 GM PCKT 1 APPLIC TOP (14:30)
== END 2022-08-22 14:40 | disposition home or self-care (01) ==
PROVIDERS: Emergency Provider Nurse Practitioner Critical Care Medicine
DX: L03.115 Cellulitis of right lower limb (principal); L02.415 Cutaneous abscess of right lower limb
CPT/HCPCS: 87070; 87075; 87077; 87147; 87205; 99283

== ENCOUNTER → 2023-05-26 17:44 | Outpatient (CLI) | payer OTHER, MEDICAID, SELFPAY ==
--- NOTE | 2023-05-26 17:48 | DI.RAD.S_ITS ---
PROCEDURE: XR KNEE RT 3V INDICATIONS: Right leg pain TECHNIQUE: 3 views of the knee were acquired. COMPARISON: [facility], , XR KNEE RT 3V, 03/09/2021, 21:55. FINDINGS: Bones: Suggestion of osteopenia. No fractures or dislocations. Enchondroma of the medial distal femur noted, unchanged in size from 03/09/2021 Soft tissues: Small suprapatellar joint effusion. Calcification projects over the lateral compartment of the knee. IMPRESSION: 1. Small suprapatellar joint effusion 2. Unchanged enchondroma 3. Calcification projecting over the lateral compartment of the knee Dictated by: Ankit Stinson M.D. on 05/27/2023 at 11:07 Approved by: Ankit Stinson M.D. on 05/27/2023 at 11:12
--- NOTE | 2023-05-26 17:48 | DI.RAD.S_ITS ---
PROCEDURE: XR HIP W PEL IF DONE RT 2V INDICATIONS: Right leg pain TECHNIQUE: AP pelvis with lateral view(s) of the right hip(s). COMPARISON: [facility], , XR HIP W PEL IF DONE RT 2V, 03/09/2021, 21:55. FINDINGS: Bones: Severe DJD of the right hip is seen with destruction of the joint space, large subchondral cysts, osteophytes and subchondral sclerosis. Soft tissues: Visualized bowel gas pattern is unremarkable IMPRESSION: Severe DJD of the right hip with joint space destruction Dictated by: Ankit Stinson M.D. on 05/27/2023 at 13:34 Approved by: Ankit Stinson M.D. on 05/27/2023 at 13:40
== END ==
PROVIDERS: Referring Provider Nurse Practitioner Family; Visit Provider Nurse Practitioner Family
DX: D16.21 Benign neoplasm of long bones of right lower limb (principal); M16.11 Unilateral primary osteoarthritis, right hip; M79.604 Pain in right leg; M25.461 Effusion, right knee
CPT/HCPCS: 73502; 73562